=== PATIENT | female | born 1995 | race Caucasian/White ===

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

== ENCOUNTER 2017-05-20 17:54 | Emergency (ER) | payer OTHER ==
[~2017-05-20] VITALS: Ht 160 cm; Wt 76.5 kg
[~2017-05-20 17:54] MED LIST changes: +ADVIL200 MG PO; +CIPRO500 MG PO; +COLACE100 MG PO; +OCELLA TABLET1 EACH PO; +ONDANSETRON ODT4 MG PO; +PERCOCET 5/31 TABLET PO
[2017-05-20 18:44] LABS: EOSINOPHIL (%) 1.3 % (0-5); EOSINOPHIL COUNT 0.1 K/uL (0-0.3); HEMATOCRIT 38.5 % (36.0-46.0); HEMOGLOBIN 13.3 G/DL (11.9-15.5); LYMPHOCYTE COUNT 1.8 K/uL (1.0-2.8); MCH 29.8 PG (29.0-34.0); MCHC 34.5 G/DL (30.0-36.0); MCV 86.3 FL (83-99); MONOCYTE (%) 11.6 % (3-12); MONOCYTE COUNT 0.5 K/uL (0-0.8); NEUTROPHIL (%) 39.1 % (45-76); NEUTROPHIL COUNT 1.5 K/uL (1.8-6.4); PLATELET COUNT 211 K/uL (156-360); RBC DIS.WIDTH-CV 11.7 % (11.8-14.6); RBC DIS.WIDTH-SD 36.5 % (39-53); RED BLOOD COUNT 4.46 M/uL (3.80-5.20); WHITE BLOOD COUNT 3.9 K/uL (4.1-10.2)
[2017-05-20 19:05] LABS: CHLORIDE 102 MEQ/L (99-109); SODIUM 137 MEQ/L (136-147)
[2017-05-20 19:11] LABS: CREATININE 0.6 MG/DL (0.6-1.3); GFR ESTIMATE (CALCULATED) > 59 mL/min/; GLUCOSE 94 mg/dL (70-99); UREA NITROGEN (BUN) 6 mg/dL (9-23)
[2017-05-20] MEDS ORDERED: DOXYCYCLINE HY100 MG PO (22:08)
[2017-05-20] MEDS ORDERED: VALTREX1000 MG PO (22:17)
[2017-05-20 22:34] VITALS: BP 114/72
== END 2017-05-20 22:35 | disposition home or self-care (01) ==
LOC: EME 17:54
DX: I80.8 Phlebitis and thrombophlebitis of other sites (principal); Z79.3 Long term (current) use of hormonal contraceptives; Z90.49 Acquired absence of other specified parts of digestive tract
CPT/HCPCS: 80048; 85025; 93971; 99281; 99284; J1885